=== PATIENT | male | born 1970 | race Caucasian/White ===

== ENCOUNTER 2016-07-09 05:51 | Day surgery (SDC) | payer BC ==
--- NOTE | ~2016-07-09 | EGD ---
EGD REPORT [facility] [address] [place] [address] NAME: ANTHONY SHELBY : [birth year] STATUS : REG [facility]#: [id number] AGE: 46 ADM/REG DATE : 07/09/16 MR#: [id number] REPORT SERV DATE: 07/09/16 DICTATED BY: RASHARD ESCOBAR DATE: 07/09/16 REPORT STATUS : Draft TRANSCRIBED BY: [employer] DATE: 07/09/16 [facility] Patient Name: Anthony Shelby Date of : 1970 Attending MD: RASHARD ESCOBAR MD Procedure Date No Time: 07/09/2016 Procedure: Colonoscopy Indications: Screening in patient at increased risk: Colorectal cancer in brother before age 60 Referring MD: CRISTOBAL VILLAVICENCIO Medicines: Monitored Anesthesia Care Complications: No immediate complications. Procedure: Pre-Anesthesia Assessment: - ASA Grade Assessment: II - A patient with mild systemic disease. After I obtained informed consent, the scope was passed under direct vision. Throughout the procedure, the patient's blood pressure, pulse, and oxygen saturations were monitored continuously. The CF [id number] was introduced through the anus and advanced to the terminal ileum, with identification of the appendiceal orifice and IC valve. The colonoscopy was performed without difficulty. The patient tolerated the procedure well. The quality of the bowel preparation was good. Findings: The digital rectal exam was normal. Pertinent negatives include no palpable rectal lesions. The terminal ileum appeared normal. A sessile polyp was found in the ascending colon. The polyp was 5 mm in size. The polyp was removed with a cold biopsy forceps. Resection and retrieval were complete. Impression: - The examined portion of the ileum was normal. - One 5 mm polyp in the ascending colon. Resected and retrieved. Recommendation: - Patient has a contact number available for emergencies. The signs and symptoms of potential delayed complications were discussed with the patient. Return to normal activities tomorrow. Written discharge instructions were provided to the patient. - Regular diet. - Continue present medications. - Repeat colonoscopy in 5 years for screening purposes. EGD REPORT [facility] [address] [place]. [address] NAME: ANTHONY SHELBY : [birth year] STATUS : REG [facility]#: [id number] AGE: 46 ADM/REG DATE : 07/09/16 MR#: [id number] REPORT SERV DATE: 07/09/16 DICTATED BY: RASHARD ESCOBAR DATE: 07/09/16 REPORT STATUS : Draft TRANSCRIBED BY: [employer] DATE: 07/09/16 - Return to GI clinic PRN. Procedure Code(s): --- Professional --- 43610, Colonoscopy, flexible, proximal to splenic flexure; with biopsy, single or multiple Diagnosis Code(s): --- Professional --- D12.2, Benign neoplasm of ascending colon Z12.11, Encounter for screening for malignant neoplasm of colon Z80.0, Family history of malignant neoplasm of digestive organs CPT copyright 2013 [employer]. All rights reserved. The codes documented in this report are preliminary and upon national sales associate review may be revised to meet current compliance requirements. RASHARD ESCOBAR MD 07/09/2016 7:59 AM This report has been signed electronically. Number of Addenda: 0 Note Initiated On: 07/09/2016 7:33 AM Scope Withdrawal Time 0 hours 9 minutes 43 seconds [address] [place], [place] [address]
[~2016-07-09 05:51] MED LIST: B12250T PO; MOBIC7.5 PO; PRINZIDE1 TA1 PO; VITE PO
[2016-11-11] MEDS ORDERED: ACET500CAP PO (12:37)
[2016-11-14] MEDS ORDERED: ELIQUIS 2.5 MG2.5 MG PO (14:47)
[2016-11-14] MEDS ORDERED: PERCOCET 10/3251 TAB PO (14:47)
== END 2016-07-09 23:59 | disposition home or self-care (01) ==
LOC: DMU 05:51
PROVIDERS: Internal Medicine Gastroenterology
PROC: 0DBK8ZX Excision of Ascending Colon, Via Natural or Artificial Opening Endoscopic, Diagnostic (ICD-10-PCS; principal; 2016-07-09 07:30)
DX: Z12.11 Encounter for screening for malignant neoplasm of colon (principal); D12.2 Benign neoplasm of ascending colon; I10 Essential (primary) hypertension; Z80.0 Family history of malignant neoplasm of digestive organs; Z88.0 Allergy status to penicillin; Z79.899 Other long term (current) drug therapy; Z98.890 Other specified postprocedural states
CPT/HCPCS: 88305